=== PATIENT | male | born 1940 | race Caucasian/White ===

== ENCOUNTER → 2018-02-07 | Outpatient (CLI) | payer MEDICARE | LOC: PLD 14:45 → LAB SHORT 14:45 | DX: C44.319 Basal cell carcinoma of skin of other parts of face (principal) | CPT/HCPCS: 88305 ==

== ENCOUNTER 2018-03-08 07:43 | Day surgery (SDC) | payer MEDICARE ==
[~2018-03-08] VITALS: Ht 185.4 cm; Wt 86.6 kg
[~2018-03-08 07:43] MED LIST: GABA600 PO; LEVSOD100 PO
== END 2018-03-08 22:44 | disposition home or self-care (01) ==
LOC: ORSCMMR 07:43 → ORD 08:30 → ORSCMMR 08:30
PROVIDERS: Internal Medicine Gastroenterology
PROC: 0DBN8ZX Excision of Sigmoid Colon, Via Natural or Artificial Opening Endoscopic, Diagnostic (ICD-10-PCS; principal; 2018-03-08 08:30)
DX: R19.5 Other fecal abnormalities (principal); D12.5 Benign neoplasm of sigmoid colon; K57.30 Diverticulosis of large intestine without perforation or abscess without bleeding; K64.8 Other hemorrhoids; E03.9 Hypothyroidism, unspecified; Z79.899 Other long term (current) drug therapy
CPT/HCPCS: 88305; J7030; J7120

== ENCOUNTER → 2019-01-29 | Outpatient (CLI) | payer MEDICARE | END | disposition home or self-care (01) | LOC: LAB SHORT 14:26 → PLD 14:26 | DX: C44.311 Basal cell carcinoma of skin of nose (principal); L57.0 Actinic keratosis | CPT/HCPCS: 88305 ==